=== PATIENT | male | born 1995 | race Two or more races ===

== ENCOUNTER 2019-03-23 09:08 | Emergency (ER) | payer MEDICAID ==
[~2019-03-23] VITALS: Ht 167.6 cm; Wt 84.8 kg
[2019-03-23 09:17] VITALS: Ht 167.6 cm; Wt 84.8 kg
[2019-03-23 11:12] VITALS: BP 139/80
== END 2019-03-23 11:12 | disposition home or self-care (01) ==
LOC: ED 09:08
DX: S90.31XA Contusion of right foot, initial encounter (principal); Z88.0 Allergy status to penicillin; Z88.6 Allergy status to analgesic agent; Y93.67 Activity, basketball; Y93.89 Activity, other specified; Y92.89 Other specified places as the place of occurrence of the external cause; Y99.8 Other external cause status
CPT/HCPCS: Q0092